=== PATIENT | male | born 1950 | race Caucasian/White ===

== ENCOUNTER 2025-01-03 13:58 | Outpatient (AMB) | payer MEDICARE, SELFPAY ==
--- NOTE | 2025-01-03 14:01 | A.OFFVIS_ITS ---
Vital Signs 01/03/25 14:03 Height 5 ft 9 in Weight 175 lb BMI 25.8 BP 133/88 Blood Pressure Location Rt brachial Position Sitting Respiration 18 Pulse 82 Pulse Source Pulse Oximeter Pulse Oximetry (%) 97 Oxygen Delivery Method Room Air Intake Visit Reasons: Right Side Low Back [employer] Duty [employer] Required: No Allergies Sulfa (Sulfonamide Antibiotics) Allergy (Unknown, Verified 01/03/25 14:07) Unknown Statins Depletion Allergy (Unknown, Uncoded 01/03/25 14:07) Unknown HPI Comments Details: Jaison is very pleasant 74 years old gentleman who presents in my office with complains on pain in the back on the right side close to the 12th rib without radiation. He reports that pain started 2 years ago. Most severe pain he feels when he is laying in bed. He reports that he can not function when he walks or stands. He can not sleep because of his pain. He is working part-time and he is retired individual. He reports that he can function normally. He reports his pain 6/10 at night and a 2/10 in the daytime. In terms of tissue damage he describes his pain as sore. He had x-ray of the lumbar spine which demonstrated disc degeneration at L4-5 however unlikely it has anything to do with the patient's pain. He had physical therapy and reported significant pain im provement for few days after the session. However unfortunately he did not do home exercise program. He had some steroid injections sounds like it was trigger point injection, he reports no pain improvement from this injection. Past medical history significant for hypertension and he has history of heart murmur. Past surgical history significant for ACL of right knee repair. Social history he denies smoking cigarettes admits drinking very little of beer drinks soda every day and denies recreational drugs. Review of Systems Const All systems reviewed & are unremarkable except as noted in HPI and below ENT Reports Normal hearing present Neuro Reports Normal hearing present, Denies Abnormal speech present, Denies confusion and Denies Sensory deficit (Neuro) Psych Denies confusion Physical Exam Vital Signs: Last Vital Signs Pulse 82 01/03/25 14:03 Resp 18 01/03/25 14:03 Pulse Ox 97 01/03/25 14:03 Oxygen Delivery Method Room Air 01/03/25 14:03 BMI result Body Mass Index 25.8 Const General: no acute distress; No confusion Orientation/consciousness: patient oriented x3 and No confusion Eyes General: appearance normal, both eyes and all related structures Pupils: Equal, round and reactive pupils present EOM: EOMs intact bilaterally Neck Neck: Yes full ROM Chest Chest palpation & inspection: normal inspection of the chest Resp Effort & Inspection: normal respiratory effort, able to speak in complete sentences, normal respiratory pattern, no audible wheezes and no cough Cardio Jugular venous distension: no JVD GI Inspection: Yes normal to inspection Back/Spine/Pelvis Other: There is minor tenderness on palpation in projection of the lower portion of the 12th rib on the right. Valsalva is negative for pain increase. The pain does not radiate. Neuro General: patient oriented x3, gait normal and No confusion Cranial nerves: Yes CN's II-XII intact bilaterally, Yes Equal, round and reactive pupils present, Yes Normal hearing present and Yes Ability to bilaterally elevate shoulders present Speech: No Abnormal speech present Gait exam (Neuro): Normal gait present Motor exam (neuro): 5/5 motor strength present throughout Sensory Exam: No Sensory deficit (Neuro) Extrem General: No pedal edema Psych Speech and movement: Normal speech and movement present Affect: normal affect Attitude: cooperative Thought process: Normal thought process present Thought content: Normal thought content present Insight: Good insight present (Psych) Judgement: Good judgement present (Psych) Assessment & Plan Assessment & Plan (1) Myofascial pain syndrome: Code(s): M79.18 - Myalgia, other site Category: Medical (2) Intercostal neuralgia: Code(s): G58.8 - Other specified mononeuropathies Category: Medical (3) Chronic pain syndrome: Code(s): G89.4 - Chronic pain syndrome Category: Medical Plan It looks like that patient has differential diagnosis would be between the 12th rib intercostal neuralgia versus myofascial pain syndrome. I offered patient to improve his sleep at night tizanidine however he refused. I also offered this patient to go for physical therapy. It sounds like in the past physical therapy was helping his pain. I recommended him to perform this time very careful home exercise programs to improve his pain. If after full 8-12 sessions of physical therapy he still will continue to complain on current pain syndrome intercostal 12 ribs therapeutic injection could be performed to help his pain. Orders: Orders PT Evaluation and Treatment Today G58.8 - Other specified mononeuropathies, G89.4 - Chronic pain syndrome, M79.18 - Myalgia, other site Coding Level of Care Code New Pt Level 3 (58772) Diagnoses Myofascial pain syndrome M79.18 Intercostal neuralgia G58.8 Chronic pain syndrome G89.4
[2025-01-03 14:03] VITALS: BP 133/88; PULSE 82; RESP 18; O2SAT 97; BMI 25.8
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
== END 2025-01-03 14:20 | disposition home or self-care (01) ==
PROVIDERS: PCP Internal Medicine; Visit Provider Anesthesiology
DX: M79.18 Myalgia, other site (principal); G58.8 Other specified mononeuropathies; G89.4 Chronic pain syndrome
CPT/HCPCS: 99203

== ENCOUNTER → 2025-01-03 13:58 | Outpatient (BNVA) | payer MEDICARE, SELFPAY | PROVIDERS: PCP Internal Medicine; Visit Provider Anesthesiology | DX: M79.18 Myalgia, other site (principal); G58.8 Other specified mononeuropathies; G89.4 Chronic pain syndrome | CPT/HCPCS: 99202 ==